=== PATIENT | male | born 1960 | race American Indian/Alaskan Native ===

== ENCOUNTER 2017-09-04 10:02 | Outpatient (CLI) | payer BC ==
--- NOTE | 2017-09-04 20:52 | XRay Report ---
FINAL REPORT EXAM: XR KNEE BILAT 4+V HISTORY: BILATERAL KNEE PAIN TECHNIQUE: AP, bilateral oblique, sunrise, and lateral views of the right knee PRIORS: None. FINDINGS: No acute fracture or dislocation is seen. The soft tissues are unremarkable with no evidence for suprapatellar joint effusion. The bony mineralization is normal. There is severe joint space narrowing in the medial knee joint. There is moderate narrowing of the patellofemoral joint. Spurs off the posterior patella and off the medial and lateral tibial plateaus are seen. IMPRESSION: No evidence for fracture or dislocation. Osteoarthritis.
== END 2017-09-04 10:03 | disposition home or self-care (01) ==
LOC: SPVIMAG 10:02
PROVIDERS: ATTEND Orthopaedic Surgery
DX: M17.0 Bilateral primary osteoarthritis of knee (principal)